=== PATIENT | male | born 1955 | race Caucasian/White ===

== ENCOUNTER → 2017-02-09 | Outpatient (CLI) | payer OTHER ==
[~2017-02-09] MED LIST: BACTRIM DS 8001 TAB PO; TRAZODONE100 MG PO; ZITHROMAX Z-PA250 M1 PO
--- NOTE | 2017-02-09 10:35 | RADIOLOGY REPORT PS360 ---
CT CALCIUM SCORING W/3D CLINICAL INDICATION: CHEST PAIN,TOBACCO USE,COPD,PALPITATIONS ORDERING PHYSICIAN: Nicolás Olmos MD PATIENT AGE: 61 years COMPARISON: None FINDINGS: Coronary artery calcium score is 39 indicating mild plaque burden with moderate cardiovascular disease risk. Incidental note made of old granulomatous disease. IMPRESSION: Mild plaque burden with moderate cardiovascular disease risk
--- NOTE | 2017-02-09 20:37 | RADIOLOGY REPORT PS360 ---
PROCEDURE: 2-D M-mode and color Doppler study INDICATIONS FOR THE TEST: Chest pain + COPD+ Heart Murmur Tobacco Smoking+ Palpitations+ Fatigue Syncope Edema Hypertension Diabetes Mellitus Rheumatic Fever SOB+VILLARREAL Obesity Hyperlipidemia Family History HD Additional History CAD PATIENT INFORMATION HEIGHT: 69 WEIGHT:135 GENDER: Male B/P:110/65 2-D/M-MODE INTERPRETATION: 2-D MEASUREMENTS OBSERVED VALUES IN CMS Right Ventricular Dimension (RVDd) 2.7 Interventricular Septum (Thickness)(IVsd) 1.3 Left Ventricular Internal Dimensions(LVIDd) 3.6 Left Ventricular Posterior Wall (Thickness)(LVPWd) 0.8 Aortic Root 3.2 Aortic Cusp Separation 1.9 Left Atrial Dimensions (LAD) 3.9 2D 1. Left atrium is mildly enlarged, left ventricle is normal size, there is mild concentric left ventricular hypertrophy present, visually estimated ejection fraction 55% with no obvious regional wall motion abnormality. 2. The right atrium and right ventricle are normal size and contractility. 3. The aortic valve is minimally thickened and calcified leaflet continue to display good mobility. 4. The mitral and tricuspid valve leaflets are minimally thickened. 5. The pulmonic valve is poorly visualized. 6. No significant pericardial effusion noted. DOPPLER INTERROGATION: Doppler interrogation of the aortic, mitral and tricuspid valvular presence of mild aortic, mild mitral and tricuspid regurgitation, tricuspid regurgitant jet velocity is insufficient for calculation of the right ventricular systolic pressure, diastolic parameters are inconclusive. CONCLUSION: 1. Mildly enlarged left atrium, normal left ventricular size, mild concentric left ventricular hypertrophy, visually estimated ejection fraction 55% with no obvious regional wall motion abnormality, diastolic parameters are inconclusive. 2. Mild aortic, mild mitral and tricuspid regurgitation. 3. No significant pericardial effusion noted.
--- NOTE | 2017-02-12 13:23 | RADIOLOGY REPORT PS360 ---
History and Indication: Tobacco use, family history, chest pain and shortness of breath Procedure: Patient received a 0.4 mg of Lexiscan, resting heart rate was 48 bpm, resting blood pressure 124/67, Lexiscan maximum heart rate achieved was 72 bpm is less than 85% of the maximum predicted heart rate and a blood pressure was 106/64. With Lexiscan patient complained of shortness of breath and stomach discomfort. Electrocardiogram: Resting electrocardiogram showed sinus bradycardia, with Lexiscan there is less than 1.[address] segment depression noted from the baseline EKG. The EKG portion of the Lexiscan Myoview is nondiagnostic. Cardiac stress and resting SPECT images: Cardiac stress and rest SPECT images were obtained using technetium 99 Myoview 10.4 mCi at rest and 30.2 mCi at stress, gated SPECT further analysis of segmental wall motion and calculation of the ejection fraction also done. Cardiac stress and rest SPECT images show mild decreased regional wall which improves on the resting images suggestive of reversible, computer derived ejection fraction is 59% with no obvious regional wall motion abnormality, right ventricle is mildly enlarged with normal contractility. Conclusion: 1. The EKG portion of the Lexiscan Myoview is nondiagnostic. 2. Scintigraphic evidence of mild reversible ischemia involving the inferior wall, computer derived ejection fraction 59% with no obvious regional wall motion abnormality, right ventricle is mildly enlarged with normal contractility. 3. Abnormal Lexiscan Myoview study.
== END ==
LOC: RAD 09:17
DX: R07.9 Chest pain, unspecified (principal); R00.2 Palpitations; J44.9 Chronic obstructive pulmonary disease, unspecified; Z72.0 Tobacco use
CPT/HCPCS: A9502; J2785

== ENCOUNTER 2017-02-16 07:17 | Day surgery (SDC) | payer OTHER ==
[2017-02-16 07:54] LABS: HEMOGLOBIN 14.8 g/dL (14.1-18.0); LYMPH # 1.9 K/mm3 (0.7-4.5); LYMPH % 23.6 % (10-50)
[2017-02-16 08:00] LABS: BUN 12 mg/dL (7-18)
[2017-02-16 08:01] LABS: GFR (ESTIMATED) 86 ML/MIN (>60)
--- NOTE | 2017-02-16 09:58 | RADIOLOGY REPORT PS360 ---
CARDIAC CATHETERIZATION DATE OF CATHETERIZATION:02/16/2017 8:48 AM PROCEDURES: 1. Left heart catheterization 2. Left ventriculogram 3. Selective coronary angiogram INDICATION FOR TEST: 1. Abnormal Myoview 2. Risk factors for coronary artery disease 3. Angina pectoris Informed consent was obtained prior to the procedure. COMPLICATIONS: None ESTIMATED BLOOD LOSS: Less than 10 ml. TECHNIQUE: One percent lidocaine used to anesthetize the right anterior aspect of the wrist. The right radial artery was accessed via the Seldinger technique. A 6 [place] sheath was placed in the right radial artery. 2.5 mg of verapamil, 800 mcg of nitroglycerin and 5000 U Heparin were given through the arterial sheath. The Linda catheter was also used to perform left heart catheterization and left ventriculography. At the end of the procedure the patient was transferred to the post-op holding area in stable condition for arterial sheath removal. ANGIOGRAPHIC RESULTS: 1. The left main artery normal 2. The left anterior descending artery has a proximal concentric 30-40% stenosis immediately adjacent to the first septal bulk plant agent and first diagonal artery. The mid LAD has an additional 40-50% concentric stenosis 3. The circumflex artery is nondominant and normal 4. The right coronary artery is a very large dominant vessel and normal 5. The FREDERICK ventriculogram reveals normal 65% 6. The left ventricular end-diastolic pressure 10 mmHg IMPRESSION: 1. Mild to moderate proximal LAD disease with moderate mid LAD disease 2. Normal ejection fraction 3. Normal left ventricular end-diastolic pressure PLAN: 1. Medical management for patient 2. Patient will follow with Dr. ACEVES 3. Standard risk factor modification
--- NOTE | 2017-02-16 09:58 | RADIOLOGY REPORT PS360 ---
CARDIAC CATHETERIZATION DATE OF CATHETERIZATION:02/16/2017 8:48 AM PROCEDURES: 1. Left heart catheterization 2. Left ventriculogram 3. Selective coronary angiogram INDICATION FOR TEST: 1. Abnormal Myoview 2. Risk factors for coronary artery disease 3. Angina pectoris Informed consent was obtained prior to the procedure. COMPLICATIONS: None ESTIMATED BLOOD LOSS: Less than 10 ml. TECHNIQUE: One percent lidocaine used to anesthetize the right anterior aspect of the wrist. The right radial artery was accessed via the Seldinger technique. A 6 [place] sheath was placed in the right radial artery. 2.5 mg of verapamil, 800 mcg of nitroglycerin and 5000 U Heparin were given through the arterial sheath. The Linda catheter was also used to perform left heart catheterization and left ventriculography. At the end of the procedure the patient was transferred to the post-op holding area in stable condition for arterial sheath removal. ANGIOGRAPHIC RESULTS: 1. The left main artery normal 2. The left anterior descending artery has a proximal concentric 30-40% stenosis immediately adjacent to the first septal marketing teacher and first diagonal artery. The mid LAD has an additional 40-50% concentric stenosis 3. The circumflex artery is nondominant and normal 4. The right coronary artery is a very large dominant vessel and normal 5. The FREDERICK ventriculogram reveals normal 65% 6. The left ventricular end-diastolic pressure 10 mmHg IMPRESSION: 1. Mild to moderate proximal LAD disease with moderate mid LAD disease 2. Normal ejection fraction 3. Normal left ventricular end-diastolic pressure PLAN: 1. Medical management for patient 2. Patient will follow with Dr. ACEVES 3. Standard risk factor modification
[2017-02-16 13:04] VITALS: BP 122/69
== END 2017-02-16 14:00 | disposition home or self-care (01) ==
LOC: CATHLAB 07:17
PROVIDERS: Internal Medicine
PROC: B2111ZZ Fluoroscopy of Multiple Coronary Arteries using Low Osmolar Contrast (ICD-10-PCS; 2017-02-16)
PROC: B2151ZZ Fluoroscopy of Left Heart using Low Osmolar Contrast (ICD-10-PCS; 2017-02-16)
PROC: 4A023N7 Measurement of Cardiac Sampling and Pressure, Left Heart, Percutaneous Approach (ICD-10-PCS; principal; 2017-02-16 09:45)
DX: I25.110 Atherosclerotic heart disease of native coronary artery with unstable angina pectoris (principal); R94.39 Abnormal result of other cardiovascular function study; R06.09 Other forms of dyspnea; J44.9 Chronic obstructive pulmonary disease, unspecified
CPT/HCPCS: C1725; C1769; J1644; Q9967

== ENCOUNTER → 2017-03-24 | Outpatient (CLI) | payer OTHER | LOC: RT 13:27 | DX: G47.10 Hypersomnia, unspecified (principal); J44.9 Chronic obstructive pulmonary disease, unspecified; R06.02 Shortness of breath; R00.1 Bradycardia, unspecified; I20.8 Other forms of angina pectoris ==

== ENCOUNTER → 2017-03-27 | Outpatient (CLI) | payer OTHER ==
--- NOTE | 2017-03-27 14:44 | RADIOLOGY REPORT PS360 ---
CT CHEST W/ CONTRAST COMPARISON: PA and lateral chest 01/14/2017 HISTORY: Evaluation for possible pulmonary nodule TECHNIQUE: Multiaxial scans obtained from thoracic inlet to the hemidiaphragms and were performed with IV contrast. Sagittal and coronal reformats were evaluated as well. FINDINGS: The lung melendez are well expanded. There is no pneumonic infiltrate seen. There is an approximate 7.6 mm noncalcified well circumscribed pulmonary nodule sub pleural location right upper lobe anterior segment. There is a small calcified pulmonary nodule proximal aspect anterior segment left upper lobe.. Cardiac size is normal and the vascularity is normal. There are calcified right paratracheal and right hilar nodes. The bony thorax is normal. IMPRESSION: Probable noncalcified granuloma in this patient with evidence of old granulomatous disease, suggest patient follow-up CT scan in 6-8 months to evaluate for interval stability.
== END ==
LOC: RAD 12:24
DX: R91.1 Solitary pulmonary nodule (principal)
CPT/HCPCS: Q9967

== ENCOUNTER → 2017-03-31 | Outpatient (CLI) | payer OTHER ==
[2017-03-31 10:49] LABS: BILIRUBIN, INDIRECT 0.44 mg/dL (0-0.9)
== END ==
LOC: LAB 07:36
PROVIDERS: Internal Medicine Cardiovascular Disease
DX: I20.8 Other forms of angina pectoris (principal); G47.10 Hypersomnia, unspecified; J44.9 Chronic obstructive pulmonary disease, unspecified; R00.0 Tachycardia, unspecified; R06.02 Shortness of breath